=== PATIENT | female | born 1970 | race Caucasian/White ===

== ENCOUNTER 2016-11-13 12:31 | Outpatient (CLI) | payer OTHER ==
[~2016-11-13] VITALS: Ht 162.6 cm; Wt 53.5 kg
== END 2016-11-13 15:52 ==
LOC: EDBD 12:31 → PREOP 12:31
PROVIDERS: ATTEND Surgery
DX: Z01.818 Encounter for other preprocedural examination (principal); K40.90 Unilateral inguinal hernia, without obstruction or gangrene, not specified as recurrent

== ENCOUNTER 2016-11-20 05:59 | Day surgery (SDC) | payer OTHER ==
[~2016-11-20] VITALS: Ht 162.6 cm; Wt 53.5 kg
[2016-11-20] MEDS ORDERED: NS (IVPB) 50 ML ONE (06:18)
[2016-11-20] MEDS ORDERED: ceFAZolin 1,000 MG (ANCEF) VIAL ONE (06:18)
[2016-11-20] MEDS ORDERED: DEXAMETHASONE PF 10 MG/ML (DECADRON) VIAL ONE (06:26)
[2016-11-20] MEDS ORDERED: fentaNYL INJECTION 100 MCG/2 ML AMP ONE (06:26)
[2016-11-20] MEDS ORDERED: ROCURONIUM 50 MG/5 ML (ZEMURON) VIAL IV ONE (06:26)
[2016-11-20] MEDS ORDERED: proPOfol 200 MG/20 ML (DIPRIVAN) VIAL IV ONE (06:26)
[2016-11-20] MEDS ORDERED: LIDOCAINE PF 2% 5 ML (XYLOCAINE) VIAL ONE (06:26)
[2016-11-20] MEDS ORDERED: ONDANSETRON 4 MG/2 ML (SDV) Z0FRAN ONE (06:26)
[2016-11-20] MEDS ORDERED: MIDAZOLAM 2 MG/2 ML (VERSED) VIAL ONE (06:27)
[2016-11-20 06:30] VITALS: BP 111/71
[2016-11-20] MEDS ORDERED: CATHETER FLUSH 10 ML SYR IV PRN (06:45)
[2016-11-20] MEDS ORDERED: ceFAZolin 1 GM/NS 50 ML IVPB IV ONE ×2 (06:45)
[2016-11-20] MEDS ORDERED: LACTATED RINGERS 1,000 ML IV PRN (06:47)
[2016-11-20] MEDS ORDERED: BUP/EPI 0.25% 1:200,000 (MARCAINE) 10 ML VIAL IJ ONE (07:19)
--- NOTE | 2016-11-20 07:50 | Progress Note-Pre Operative ---
Pre-Operative Progress Note H&P Reviewed The H&P was reviewed, patient examined and no changes noted. Date Seen by Provider: Nov 20, 2016 Time Seen by Provider: 07:49 Date H&P Reviewed: Nov 20, 2016 Time H&P Reviewed: 07:49 Pre-Operative Diagnosis: Right Inguinal Hernia PASCALE FERRARA MD Nov 20, 2016 7:50 am
[2016-11-20] MEDS ORDERED: SEVOFLURANE (ULTANE) 15 ML INHAL SOLN ONE (09:04)
[2016-11-20] MEDS ORDERED: LACTATED RINGERS 2,000 ML IV ONE (09:04)
[2016-11-20] MEDS ORDERED: HYDR-3812 PO (09:11)
--- NOTE | 2016-11-20 09:11 | Progress Note-Post Operative ---
Post-Operative Progess Note Surgeon (s)/Credit Collection Associate (s) Surgeon PASCALE FERRARA MD Credit Collection Associate: not applicable Pre-Operative Diagnosis Right Inguinal Hernia Post-Operative Diagnosis right femoral hernia Procedure & Operative Findings Date of Procedure 11/20/16 Procedure Performed/Findings robotic assisted repair with mesh Anesthesia Type Gen. Estimated Blood Loss Estimated blood loss (mL): mminimal Specimens/Packing Specimens Removed none PASCALE FERRARA MD Nov 20, 2016 9:11 am
--- NOTE | 2016-11-20 09:12 | Discharge Inst-Simple/Standard ---
Discharge Inst-Standard Discharge Medications New, Converted or Re-Newed RX: RX on Chart Patient Instructions/Follow Up Plan of Care/Instructions/FU: dressings off in 48 hours. Follow-up in 4 weeks Activity as Tolerated: No Goal: no lifting over 10 pounds Discharge Diet: No Restrictions PASCALE FERRARA MD Nov 20, 2016 9:12 am
[2016-11-20] MEDS ORDERED: morphine INJ 10 MG/ML 1ML (SYR OR VIAL) IVP PRN (09:30)
[2016-11-20] MEDS ORDERED: ONDANSETRON 4 MG/2 ML (SDV) Z0FRAN IVP PRN (09:30)
[2016-11-20] MEDS ORDERED: KETOROLAC 30 MG/ML VIAL IVP ONE (09:30)
[2016-11-20] MEDS ORDERED: HYDROmorphone (DILAUDID) 2 MG/ML VIAL IVP PRN (09:30)
[2016-11-20 10:20] VITALS: BP 94/61
[2016-11-20 10:50] VITALS: BP 90/54
[2016-11-20 11:20] VITALS: BP 94/64
[2016-11-20 12:30] VITALS: BP 94/64
--- NOTE | 2016-11-20 13:04 | OPERATIVE REPORT ---
DATE OF SERVICE: 11/20/2016 PREOPERATIVE DIAGNOSIS: Right inguinal hernia. POSTOPERATIVE DIAGNOSIS: Right femoral hernia. OPERATION: Robotic-assisted repair of right femoral hernia with mesh. SURGEON: Pascale Ferrara MD ANESTHESIA: General anesthesia. BLOOD LOSS: Minimal. FLUIDS: 1200 mL of crystalloid. TYPE OF WOUND: Clean (Type I) INDICATION FOR PROCEDURE: This lady presented with what appeared to be a right inguinal hernia with symptoms. She was offered minimally invasive repair with robotic assistance and mesh reinforcement. Informed consent was obtained after reviewing the operative details and complications of hematoma, infection of the mesh and a low incidence of recurrence. DESCRIPTION OF PROCEDURE: She was placed supine on the operating table and general anesthesia induced using an endotracheal tube. A gram of Ancef was administered intravenously as prophylaxis against wound infection. Sequential compression devices were placed around her legs, to minimize the risk of venous thrombosis. A Durbin catheter was placed to decompress the bladder during surgery. It was removed at the end of the operation. Abdomen was prepared and draped in the usual sterile manner. Pneumoperitoneum was established using a Veress needle introduced over a subumbilical incision. Intraabdominal pressure was maintained at 15 mmHg using carbon dioxide insufflation. A 12 mm trocar was placed and anatomy visualized using the high definition, three-dimensional laparoscope associated with Ulmart system. Laparoscopic survey confirmed a defect far medial to the round ligament of the uterus confirming a femoral hernia. Under direct view, I placed an 8 mm cannula over each side of the abdomen and the patient was turned into steep Trendelenburg position, to facilitate displacement of the loops of bowel out of the pelvis. Peritoneum was incised laterally continuing medially, entering the preperitoneal space. The hernia contents were made up of extraperitoneal fat and were reduced completely. The defect was then gently approximated using a 2-0 V-Loc suture with robotic assistance, without constricting the femoral vein. The pre-peritoneal space was then reinforced using a polypropylene mesh measuring 8.5 x 13.7 cm, preformed to fit into this space. It was secured to Sumeet's ligament and the lateral abdominal musculature with 2-0 Vicryl sutures, using robotic assistance. Peritoneum was then reapproximated using a 2-0 V-Loc suture, incorporating this sac itself. During this process, intra-abdominal pressure was reduced to 11 mm, to avoid tension on the suture line. Pneumoperitoneum was then deflated and the trocars were removed. The fascia over the incisions was closed using #1 Vicryl. Skin was closed using 4-0 Vicryl, in a subcuticular fashion. Marcaine 0.25% with epinephrine was infiltrated along the incisions, both preemptively and at the conclusion of the operation. She tolerated the procedure well, was extubated in the operating room and taken to the recovery room in a stable condition. The Durbin catheter was removed at the end of the operation. Job ID: [id number] DocumentID: [id number] Dictated Date: 11/20/2016 09:10:00 [employer] Worker Date: 11/20/2016 11:42:41 Dictated By: PASCALE FERRARA MD MTDD
== END 2016-11-20 12:30 | disposition home or self-care (01) ==
LOC: SDC 05:59 → EDBD 08:00 → SDC 12:30
PROVIDERS: ATTEND Surgery
DX: K41.90 Unilateral femoral hernia, without obstruction or gangrene, not specified as recurrent (principal)
CPT/HCPCS: 84703; 87081